=== PATIENT | male | born 1940 | race Caucasian/White ===

== ENCOUNTER → 2016-09-24 | Outpatient (CLI) | payer MEDICARE, OTHER ==
[~2016-09-24] MED LIST: ALPR-475 PO; EZET1TAB4 PO; FLUT9.9S NS; METF10002 PO; METO50TA82 PO; PANT40TA5 PO; RAMI5CAP PO; WARF7.5T PO; testosterone IM; zocor PO
[2016-09-24 10:37] LABS: HEMOGLOBIN 17.8 g/dL (13.7-18.0)
[2016-09-24 10:47] LABS: ASPARTATE AMINO TRANSFERASE 17 U/L (15-37); BLOOD UREA NITROGEN 11 mg/dL (7-18)
== END | disposition home or self-care (01) ==
LOC: STAR 08:53
PROVIDERS: ATTEND Internal Medicine Gastroenterology
DX: Z01.818 Encounter for other preprocedural examination (principal); K21.9 Gastro-esophageal reflux disease without esophagitis; K63.5 Polyp of colon; R79.1 Abnormal coagulation profile
CPT/HCPCS: 36415; 80053; 85025; 85610; 85730; 93005